=== PATIENT | female | born 1975 | race Caucasian/White ===

== ENCOUNTER → 2016-07-26 | Outpatient (REF) | payer OTHER ==
[2016-07-26 18:22] LABS: MEAN CORPUSCULAR HEMOGLOBIN 29.1 pg (27.0-33.0); MEAN CORPUSCULAR HGB CONC 32.4 g/dl (32.0-36.5); MEAN CORPUSCULAR VOLUME 89.7 fl (80.0-96.0); RED CELL DISTRIBUTION WIDTH 13.6 % (11.5-14.5); WHITE BLOOD COUNT 3.5 K/mm3 (4.0-10.0)
[2016-07-26 20:31] LABS: ALBUMIN 3.8 GM/DL (3.2-5.2); ALBUMIN/GLOBULIN RATIO 1.41 (1.00-1.93); ALKALINE PHOSPHATASE 50 U/L (45-117); ALT/SGPT 15 U/L (12-78); ANION GAP 7 MEQ/L (8-16); AST/SGOT 10 U/L (15-37); BILIRUBIN,TOTAL 0.3 MG/DL (0.2-1.0); BLOOD UREA NITROGEN 13 MG/DL (7-18); CALCIUM LEVEL 8.1 MG/DL (8.5-10.1); CARBON DIOXIDE LEVEL 27 MEQ/L (21-32); CHLORIDE LEVEL 108 MEQ/L (98-107); CHOLESTEROL LEVEL 184 MG/DL (<200); CREATININE FOR GFR 0.63 MG/DL (0.55-1.02); GLOMERULAR FILTRATION RATE > 60.0 (>58); GLUCOSE, FASTING 80 MG/DL (70-105); POTASSIUM SERUM 4.5 MEQ/L (3.5-5.1); SODIUM LEVEL 142 MEQ/L (136-145); TOTAL PROTEIN 6.5 GM/DL (6.4-8.2); TRIGLYCERIDES LEVEL 63 MG/DL (<150)
== END ==
LOC: M SFHCLERA 11:28
PROVIDERS: ATTEND Family Medicine
DX: Z13.1 Encounter for screening for diabetes mellitus (principal); Z13.220 Encounter for screening for lipoid disorders; E55.9 Vitamin D deficiency, unspecified

== ENCOUNTER → 2016-07-29 | Outpatient (REF) | payer OTHER | LOC: M SFHCLERA 09:37 | PROVIDERS: ATTEND Physician Assistant | DX: J02.9 Acute pharyngitis, unspecified (principal) ==

== ENCOUNTER 2016-10-20 08:00 | Outpatient (CLI) | payer OTHER ==
[~2016-10-20] VITALS: Ht 154.9 cm; Wt 65.3 kg
[~2016-10-20 08:00] MED LIST: IBUP-1114 PO; LIDOCAINE 2% INJ 100 MG/5 ML SDV (FOR ANES.) As Ordered ONE; NS 1,000 ML IV ONE; PROPOFOL 200 MG/20 ML VIAL As Ordered ONE; TOPA100T12 PO
--- NOTE | 2016-10-20 09:42 | ROOR ---
Patient Name: Inocencia Byrnes Procedure Date: 10/20/2016 9:16 AM Date of : 1975 Age: 41 Room: [facility] Gender: Female Note Status: Finalized Procedure: Colonoscopy Indications: Follow-up of ulcerative colitis Providers: Jarrod Patiño Jr, MD Referring MD: [facility], [place] Requesting Provider: Medicines: Propofol per Anesthesia Complications: No immediate complications. Procedure: Pre-Anesthesia Assessment: - Prior to the procedure, a History and Physical was performed, and patient medications and allergies were reviewed. The patient is competent. The risks and benefits of the procedure and the sedation options and risks were discussed with the patient. All questions were answered and informed consent was obtained. Patient identification and proposed procedure were verified by the physician and the nurse in the pre-procedure area and in the procedure room. Mental Status Examination: alert and oriented. Airway Examination: normal oropharyngeal airway and neck mobility. Respiratory Examination: clear to auscultation. CV Examination: normal. ASA Grade Assessment: II - A patient with mild systemic disease. After reviewing the risks and benefits, the patient was deemed in satisfactory condition to undergo the procedure. The anesthesia plan was to use moderate sedation / analgesia (conscious sedation). Immediately prior to administration of medications, the patient was re-assessed for adequacy to receive sedatives. The heart rate, respiratory rate, oxygen saturations, blood pressure, adequacy of pulmonary ventilation, and response to care were monitored throughout the procedure. The physical status of the patient was re-assessed after the procedure. The Colonoscope was introduced through the anus and advanced to the cecum, identified by appendiceal orifice and ileocecal valve. The colonoscopy was performed without difficulty. The patient tolerated the procedure well. The quality of the bowel preparation was adequate and good. Findings: The perianal and digital rectal examinations were normal. Pertinent negatives include normal sphincter tone, no palpable rectal lesions and no anal lesion or abnormality was detected. The rectum, recto-sigmoid colon, sigmoid colon, descending colon, transverse colon, ascending colon, cecum, appendiceal orifice, ileocecal valve and ileum appeared normal. Terminal ileal Biopsies were taken with a cold forceps for histology. Biopsies for histology were taken with a cold forceps from the cecum, ascending colon, transverse colon, descending colon and sigmoid colon for evaluation of microscopic colitis. Impression: - The rectum, recto-sigmoid colon, sigmoid colon, descending colon, transverse colon, ascending colon, cecum, appendiceal orifice, ileocecal valve and terminal ileum are normal. Biopsied. Recommendation: - Discharge patient to home (ambulatory). - Telephone my office for pathology results in 1 week. Jarrod Patiño MD Jarrod Patiño Jr, MD 10/20/2016 9:42:16 AM This report has been signed electronically. Number of Addenda: 0 Note Initiated On: 10/20/2016 9:16 AM Estimated Blood Loss: Estimated blood loss: none.
[2016-10-20 10:00] VITALS: BP 104/71
== END 2016-10-20 10:11 | disposition home or self-care (01) ==
LOC: M OPP 08:00
PROVIDERS: ATTEND Surgery
DX: Z12.11 Encounter for screening for malignant neoplasm of colon (principal); K51.90 Ulcerative colitis, unspecified, without complications; K21.9 Gastro-esophageal reflux disease without esophagitis; G43.909 Migraine, unspecified, not intractable, without status migrainosus; K44.9 Diaphragmatic hernia without obstruction or gangrene; Z88.2 Allergy status to sulfonamides; Z79.899 Other long term (current) drug therapy; Z83.71 Family history of colonic polyps; Z80.8 Family history of malignant neoplasm of other organs or systems

== ENCOUNTER → 2016-11-03 | Outpatient (REF) | payer OTHER ==
[~2016-11-03] MED LIST changes: -LIDOCAINE 2% INJ 100 MG/5 ML SDV (FOR ANES.) As Ordered ONE; -NS 1,000 ML IV ONE; -PROPOFOL 200 MG/20 ML VIAL As Ordered ONE
== END ==
LOC: M LAB REF 18:51
PROVIDERS: ATTEND Family Medicine
DX: R85.610 Atypical squamous cells of undetermined significance on cytologic smear of anus (ASC-US) (principal)

== ENCOUNTER → 2016-12-05 | Outpatient (CLI) | payer OTHER ==
--- NOTE | 2016-12-05 19:09 | REPMRS ---
Patient History The patient states she had a clinical breast exam in November 2016.Patient had first child at age 31. Family history of breast cancer in paternal aunt under age 50 and breast cancer in paternal cousin under age 50. Digital Mammo Screening Bilat: December 05, 2016 - Exam #: [id number] Bilateral CC and MLO view(s) were taken. Technologist: Indira Dinero, Technologist Prior study comparison: May 27, 2015, digital bilateral screening mammo, performed at [facility]. FINDINGS: The breast tissue is heterogeneously dense. This may lower the sensitivity of mammography. There is a moderate amount of heterogeneously dense fibroglandular tissue which is fairly symmetric. There is no interval development of dominant mass, architectural distortion, or clustered microcalcification typical of malignancy. There has been no change in the appearance of the mammogram from the prior studies. ASSESSMENT: BI-RADS/ACR category 1 mammogram. Negative. Recommendation Breast MRI of both breasts in 6 months. This patient's estimated Tyrer-Cuzick lifetime risk assessment for the breast cancer is 21.3%. Enhanced screening in the form of annual bilateral breast MRI scanning is warranted. Routine screening mammogram of both breasts in 1 year (for women over age 40). This mammogram was interpreted with the aid of an FDA-approved computer-aided dectection system. Electronically Signed By: Eliazar Lazo MD 12/05/16 [id number]
== END ==
LOC: M RAD 18:07
PROVIDERS: ATTEND Family Medicine
DX: Z01.419 Encounter for gynecological examination (general) (routine) without abnormal findings (principal)

== ENCOUNTER → 2017-01-10 | Outpatient (CLI) | payer OTHER ==
--- NOTE | 2017-01-10 17:55 | REP ---
Pelvic sonography: History: Frequent menstruation. Excessive menstruation. Findings: Transabdominal and transvaginal scanning are performed. Uterine dimensions are 10.8 x 4.0 x 6.5 cm. Endometrial echo 0.9 cm thick and centrally placed. No focal uterine mass is seen. A normal right ovary seen measuring 3.4 x 2.4 x 1.8 cm. Its Doppler flow is normal, resistive index 0.50. Left ovary measures 3.5 x 2.7 x 3.0 cm. There is a 2.1 cm follicle cyst in the left ovary. Resistive index by Doppler is normal at 0.58 on the left. Bladder dunham are smooth. Impression: No significant abnormality. Signed by Caesar Lazo MD 01/11/2017 02:17 P
== END ==
LOC: M RAD 16:37
PROVIDERS: ATTEND Obstetrics & Gynecology
DX: N92.0 Excessive and frequent menstruation with regular cycle (principal)

== ENCOUNTER → 2017-08-22 | Outpatient (REF) | payer OTHER | LOC: M LAB REF 18:17 | DX: D23.5 Other benign neoplasm of skin of trunk (principal) | CPT/HCPCS: 88305 ==

== ENCOUNTER → 2017-12-21 | Outpatient (REF) | payer OTHER ==
[2017-12-21 20:50] LABS: BASO % 0.4 % (0.0-1.0); EOS # 0.1 10^3/uL (0.0-0.50); EOS % 1.3 % (0.0-3.0); HEMOGLOBIN 9.7 g/dl (12.0-15.5); IMMATURE GRANULOCYTE % 0.4 % (0-3.0); LYMPH # 1.5 10^3/uL (1.5-4.5); LYMPH % 32.7 % (24.0-44.0); MEAN CORPUSCULAR HEMOGLOBIN 22.2 pg (27.0-33.0); MEAN CORPUSCULAR HGB CONC 28.5 g/dl (32.0-36.5); MEAN CORPUSCULAR VOLUME 77.8 fl (80.0-96.0); MONO # 0.5 10^3/uL (0.0-0.8); NEUTROPHILS # 2.5 10^3/uL (1.8-7.7); NEUTROPHILS % 55.2 % (36.0-66.0); PLATELET COUNT, AUTOMATED 439 10^3/uL (150-450); RED BLOOD COUNT 4.37 10^6/uL (4.00-5.40); RED CELL DISTRIBUTION WIDTH 17.3 % (11.5-14.5); WHITE BLOOD COUNT 4.6 10^3/uL (4.0-10.0)
[2017-12-21 21:18] LABS: FREE T4 0.97 NG/DL (0.76-1.46); THYROID STIMULATING HORMONE 0.893 uIU/ML (0.358-3.740)
== END ==
LOC: M SFHCLERA 15:18
DX: L65.9 Nonscarring hair loss, unspecified (principal)

== ENCOUNTER → 2018-01-23 | Outpatient (REF) | payer OTHER ==
[2018-01-23 12:05] LABS: FERRITIN 2 NG/ML (8-252); IRON (FE) 17 UG/DL (50-170); PERCENT SATURATION 4.5 % (13.2-45.0); TOTAL IRON BINDING CAPACITY 379 UG/DL (250-450)
== END ==
LOC: M SFHCLERA 09:18
DX: D64.9 Anemia, unspecified (principal)

== ENCOUNTER → 2018-03-05 | Outpatient (CLI) | payer OTHER ==
--- NOTE | 2018-03-05 16:06 | REPMRS ---
Patient History The patient states she has not had a clinical breast exam in over a year. Family history of breast cancer under age 50 in paternal aunt, breast cancer under age 50 in paternal cousin. Digital Mammo Screening Bilat: March 05, 2018 - Exam #: [id number] Bilateral CC and MLO view(s) were taken. Technologist: Allegra Jeong, Technologist Prior study comparison: December 05, 2016, bilateral digital mammo screening bilat performed at [facility]. May 27, 2015, digital bilateral screening mammo, performed at [facility]. FINDINGS: There are scattered fibroglandular densities. There is a moderate amount of residual fibroglandular tissue which is fairly symmetric. There is no interval development of dominant mass, architectural distortion, or clustered microcalcification typical of malignancy. There has been no change in the appearance of the mammogram from the prior studies. 3-D tomosynthesis shows no additional findings. Assessment: BI-RADS/ACR category 1 mammogram. Negative. Recommendation Breast MRI of both breasts in 6 months. Routine screening mammogram of both breasts in 1 year (for women over age 40). This patient's Lifetime Breast Cancer RIsk is estimated at 20.8 %. Annual screening Breast MRI scanniing is recommended for patient's whose lifetime risk assessment is over 20%. This mammogram was interpreted with the aid of an FDA-approved computer-aided dectection system. Electronically Signed By: Eliazar Lazo MD 03/05/18 [id number]
== END ==
LOC: M RAD 10:54
PROVIDERS: ATTEND Family Medicine
DX: Z12.31 Encounter for screening mammogram for malignant neoplasm of breast (principal)

== ENCOUNTER → 2018-03-08 | Outpatient (CLI) | payer OTHER ==
--- NOTE | 2018-03-09 02:19 | REP ---
Clinical: Cough . Comparison: 11/12/2008 . Technique: PA and lateral. Findings: The mediastinum and cardiac silhouette are normal. The lung chavez are clear and without acute consolidation, effusion, or pneumothorax. The skeletal structures are intact and normal. Impression: 1. No acute cardiopulmonary process. Electronically Signed by Rex Murphy MD 03/09/2018 02:10 A
== END ==
LOC: M LRY 09:36
PROVIDERS: ATTEND Nurse Practitioner Family
DX: R05 Cough (principal)

== ENCOUNTER → 2019-03-07 | Outpatient (CLI) | payer OTHER ==
--- NOTE | 2019-03-07 12:32 | REPMRS ---
Patient History The patient states she had a clinical breast exam in October 2018. Family history of breast cancer under age 50 in paternal aunt, breast cancer under age 50 in paternal cousin. Digital Mammo Screening Bilat: March 07, 2019 - Exam #: [id number] Bilateral CC and MLO view(s) were taken. Technologist: Franca Dorado Technologist Prior study comparison: March 05, 2018, bilateral digital mammo screening bilat performed at [facility]. December 05, 2016, bilateral digital mammo screening bilat performed at [facility]. May 27, 2015, digital bilateral screening mammo, performed at [facility]. FINDINGS: There are scattered fibroglandular densities. There is a nodular opacity in the left medial breast which is felt to be unchanged from the 2016 and 2015 prior studies.There has been no change in the appearance of the mammogram from the prior studies. There is a mild amount of scattered fibroglandular density which is fairly symmetric. There is no interval development of dominant mass, architectural distortion, or grouped microcalcification suggestive of malignancy. 3-D tomosynthesis shows no additional findings. Assessment: BI-RADS/ACR category 2 mammogram. Benign Findings. Recommendation Breast MRI of both breasts in 6 months. Routine screening mammogram of both breasts in 1 year (for women over age 40). This patient's Lifetime Breast Cancer Risk is estimated at 20.5 %. Annual screening Breast MRI scanniing is recommended for patient's whose lifetime risk assessment is over 20%. This mammogram was interpreted with the aid of an FDA-approved computer-aided dectection system. Electronically Signed By: Eliazar Lazo MD 03/07/19 [id number]
== END ==
LOC: M RAD 10:25
PROVIDERS: ATTEND Family Medicine
DX: Z12.31 Encounter for screening mammogram for malignant neoplasm of breast (principal); Z80.3 Family history of malignant neoplasm of breast

== ENCOUNTER → 2019-10-03 | Outpatient (CLI) | payer OTHER ==
[2019-10-03 12:28] LABS: BASO % 0.5 % (0.0-1.0); EOS % 0.3 % (0.0-3.0); HEMATOCRIT 37.3 % (36.0-47.0); HEMOGLOBIN 10.9 g/dl (12.0-15.5); LYMPH # 1.3 10^3/uL (1.5-5.0); LYMPH % 33.3 % (24.0-44.0); MEAN CORPUSCULAR HEMOGLOBIN 23.7 pg (27.0-33.0); MEAN CORPUSCULAR HGB CONC 29.2 g/dl (32.0-36.5); MEAN CORPUSCULAR VOLUME 81.1 fl (80.0-96.0); MONO # 0.3 10^3/uL (0.0-0.8); MONO % 8.7 % (0.0-5.0); NEUTROPHILS # 2.1 10^3/uL (1.5-8.5); NEUTROPHILS % 56.7 % (36.0-66.0); PLATELET COUNT, AUTOMATED 324 10^3/uL (150-450); WHITE BLOOD COUNT 3.8 10^3/uL (4.0-10.0)
[2019-10-03 12:54] LABS: ALT/SGPT 18 U/L (12-78); BILIRUBIN,TOTAL 0.4 MG/DL (0.2-1.0); BLOOD UREA NITROGEN 13 MG/DL (7-18); CALCIUM LEVEL 8.2 MG/DL (8.5-10.1); CARBON DIOXIDE LEVEL 20 MEQ/L (21-32); CHLORIDE LEVEL 113 MEQ/L (98-107); CHOLESTEROL LEVEL 188 MG/DL (<200); CREATININE FOR GFR 0.83 MG/DL (0.55-1.30); FERRITIN 48 NG/ML (8-252); GLOMERULAR FILTRATION RATE > 60.0 (>58); GLUCOSE, FASTING 78 MG/DL (70-100); HDL CHOLESTEROL 39 MG/DL (>40); IRON (FE) 44 UG/DL (50-170); LDL CHOLESTEROL 125 MG/DL (<100); NON-HDL-C 149 MG/DL; PERCENT SATURATION 11.5 % (13.2-45.0); POTASSIUM SERUM 4.1 MEQ/L (3.5-5.1); SODIUM LEVEL 142 MEQ/L (136-145); TOTAL IRON BINDING CAPACITY 381 UG/DL (250-450); TRIGLYCERIDES LEVEL 121 MG/DL (<150)
[2019-10-03 12:55] LABS: FOLATE 16.8 NG/ML; TOTAL 25(OH) VITAMIN D 23.2 NG/ML (30.0-100.0); VITAMIN B12 LEVEL 358 PG/ML
== END ==
LOC: M LAB 10:10
PROVIDERS: ATTEND Family Medicine
DX: Z00.00 Encounter for general adult medical examination without abnormal findings (principal); D50.9 Iron deficiency anemia, unspecified

== ENCOUNTER → 2020-04-29 | Outpatient (CLI) | payer OTHER ==
--- NOTE | 2020-04-29 09:17 | REPMRS ---
Patient History The patient states she has not had a clinical breast exam in over a year. Patient had first child at age 31. Family history of breast cancer under age 50 in paternal aunt, breast cancer under age 50 in paternal cousin. Digital Woman Screen Mammo: April 29, 2020 - Exam #: [id number] Bilateral CC and MLO view(s) were taken. Technologist: Allegra Jeong, Technologist Prior study comparison: March 07, 2019, bilateral digital mammo screening bilat, performed at [facility]. March 05, 2018, bilateral digital mammo screening bilat, performed at [facility]. December 05, 2016, bilateral digital mammo screening bilat, performed at [facility]. FINDINGS: There are scattered fibroglandular densities. The Volpara volumetric breast density category is:B. There has been no change in the appearance of the mammogram from the prior studies. There is a mild amount of scattered fibroglandular density which is fairly symmetric. There is no interval development of dominant mass, architectural distortion, or grouped microcalcification suggestive of malignancy. 3-D tomosynthesis shows no additional findings. Assessment: BI-RADS/ACR category 1 mammogram. Negative Mammogram. Recommendation Breast MRI of both breasts in 6 months. Routine screening mammogram of both breasts in 1 year (for women over age 40). This patient's [facility] Lifetime Breast Cancer Risk is estimated at 20.3 %. Annual screening Breast MRI scanniing is recommended for patient's whose lifetime risk assessment is over 20%. This mammogram was interpreted with the aid of an FDA-approved computer-aided dectection system. Electronically Signed By: Eliazar Lazo MD 04/29/20 0916
== END ==
LOC: M WHC 06:30
PROVIDERS: ATTEND Physician Assistant
DX: Z12.31 Encounter for screening mammogram for malignant neoplasm of breast (principal)

== ENCOUNTER → 2020-05-13 | Outpatient (CLI) | payer OTHER ==
[2020-05-13 14:25] LABS: BASO % 0.4 % (0.0-1.0); EOS % 0.4 % (0.0-3.0); HEMATOCRIT 38.4 % (36.0-47.0); HEMOGLOBIN 11.7 g/dl (12.0-15.5); LYMPH # 1.9 10^3/uL (1.5-5.0); LYMPH % 36.1 % (24.0-44.0); MEAN CORPUSCULAR HEMOGLOBIN 25.7 pg (27.0-33.0); MEAN CORPUSCULAR HGB CONC 30.5 g/dl (32.0-36.5); MEAN CORPUSCULAR VOLUME 84.4 fl (80.0-96.0); MONO # 0.5 10^3/uL (0.0-0.8); MONO % 9.6 % (2.0-8.0); NEUTROPHILS # 2.8 10^3/uL (1.5-8.5); NEUTROPHILS % 53.1 % (36.0-66.0); PLATELET COUNT, AUTOMATED 286 10^3/uL (150-450); RED BLOOD COUNT 4.55 10^6/uL (4.00-5.40); WHITE BLOOD COUNT 5.3 10^3/uL (4.0-10.0)
[2020-05-13 14:41] LABS: ALT/SGPT 22 U/L (12-78); BILIRUBIN,TOTAL 0.5 MG/DL (0.2-1.0); BLOOD UREA NITROGEN 12 MG/DL (7-18); CALCIUM LEVEL 9.1 MG/DL (8.5-10.1); CARBON DIOXIDE LEVEL 26 MEQ/L (21-32); CHLORIDE LEVEL 107 MEQ/L (98-107); CREATININE FOR GFR 0.74 MG/DL (0.55-1.30); GLOMERULAR FILTRATION RATE > 60.0 (>58); GLUCOSE, FASTING 81 MG/DL (70-100); IRON (FE) 39 UG/DL (50-170); PERCENT SATURATION 9.3 % (13.2-45.0); POTASSIUM SERUM 4.3 MEQ/L (3.5-5.1); SODIUM LEVEL 138 MEQ/L (136-145); TOTAL IRON BINDING CAPACITY 420 UG/DL (250-450)
== END ==
LOC: M LAB 13:15
PROVIDERS: ATTEND Family Medicine
DX: Z00.00 Encounter for general adult medical examination without abnormal findings (principal)

== ENCOUNTER → 2020-05-14 | Outpatient (REF) | payer OTHER | LOC: M SFHCLERA 15:57 | PROVIDERS: ATTEND Family Medicine | DX: Z01.419 Encounter for gynecological examination (general) (routine) without abnormal findings (principal) ==

== ENCOUNTER 2021-02-15 07:50 | Outpatient (RCR) | END 2021-02-15 15:00 | disposition home or self-care (01) | LOC: M EMP 07:50 | PROVIDERS: ATTEND Pediatrics | DX: Z11.52 Encounter for screening for COVID-19 (principal) ==

== ENCOUNTER → 2021-05-05 | Outpatient (CLI) | payer OTHER ==
[2021-05-05 11:15] LABS: BASO % 0.6 % (0.0-1.0); EOS % 0.6 % (0.0-3.0); HEMATOCRIT 37.6 % (36.0-47.0); HEMOGLOBIN 11.2 g/dl (12.0-15.5); LYMPH # 1.6 10^3/uL (1.5-5.0); LYMPH % 31.5 % (24.0-44.0); MEAN CORPUSCULAR HEMOGLOBIN 24.6 pg (27.0-33.0); MEAN CORPUSCULAR HGB CONC 29.8 g/dl (32.0-36.5); MEAN CORPUSCULAR VOLUME 82.6 fl (80.0-96.0); MONO # 0.4 10^3/uL (0.0-0.8); MONO % 8.1 % (2.0-8.0); NEUTROPHILS # 3.1 10^3/uL (1.5-8.5); PLATELET COUNT, AUTOMATED 360 10^3/uL (150-450); RED BLOOD COUNT 4.55 10^6/uL (4.00-5.40); WHITE BLOOD COUNT 5.2 10^3/uL (4.0-10.0)
[2021-05-05 11:45] LABS: ALBUMIN 3.7 GM/DL (3.2-5.2); ALT/SGPT 25 U/L (12-78); BILIRUBIN,TOTAL 0.3 MG/DL (0.2-1.0); BLOOD UREA NITROGEN 10 MG/DL (7-18); CALCIUM LEVEL 8.7 MG/DL (8.5-10.1); CARBON DIOXIDE LEVEL 28 MEQ/L (21-32); CHLORIDE LEVEL 108 MEQ/L (98-107); CHOLESTEROL LEVEL 204 MG/DL (<200); CREATININE FOR GFR 0.67 MG/DL (0.55-1.30); GLOMERULAR FILTRATION RATE > 60.0 (>58); GLUCOSE, FASTING 82 MG/DL (70-100); HDL CHOLESTEROL 51 MG/DL (>40); LDL CHOLESTEROL 121 MG/DL (<100); NON-HDL-C 153 MG/DL; POTASSIUM SERUM 4.1 MEQ/L (3.5-5.1); SODIUM LEVEL 141 MEQ/L (136-145); TOTAL PROTEIN 6.8 GM/DL (6.4-8.2); TRIGLYCERIDES LEVEL 159 MG/DL (<150)
== END ==
LOC: M LAB 10:27
PROVIDERS: ATTEND Student in an Organized Health Care Education/Training Program
DX: Z00.00 Encounter for general adult medical examination without abnormal findings (principal)

== ENCOUNTER → 2021-05-07 | Outpatient (CLI) | payer OTHER | LOC: M WHC 10:54 | PROVIDERS: ATTEND Student in an Organized Health Care Education/Training Program | DX: Z12.31 Encounter for screening mammogram for malignant neoplasm of breast (principal) ==

== ENCOUNTER → 2021-05-19 | Outpatient (CLI) | payer OTHER | LOC: M WHC 09:59 | PROVIDERS: ATTEND Student in an Organized Health Care Education/Training Program | DX: Z12.31 Encounter for screening mammogram for malignant neoplasm of breast (principal) | CPT/HCPCS: 77065; G0279 ==

== ENCOUNTER 2021-06-01 22:36 | Emergency (ER) | payer OTHER ==
[~2021-06-01] VITALS: Ht 154.9 cm; Wt 72.3 kg
[2021-06-01] MEDS ORDERED: PANTOPRAZOLE 40MG VIAL (C9113 PER 1) IV ONE (23:10)
[2021-06-01 23:37] LABS: BASO % 0.3 % (0.0-1.0); EOS % 0.3 % (0.0-3.0); HEMATOCRIT 34.2 % (36.0-47.0); HEMOGLOBIN 10.7 g/dl (12.0-15.5); LYMPH % 13.4 % (24.0-44.0); MEAN CORPUSCULAR HEMOGLOBIN 24.8 pg (27.0-33.0); MEAN CORPUSCULAR HGB CONC 31.3 g/dl (32.0-36.5); MEAN CORPUSCULAR VOLUME 79.2 fl (80.0-96.0); MONO # 0.5 10^3/uL (0.0-0.8); MONO % 7.3 % (2.0-8.0); NEUTROPHILS # 5.6 10^3/uL (1.5-8.5); NEUTROPHILS % 78.3 % (36.0-66.0); PLATELET COUNT, AUTOMATED 327 10^3/uL (150-450); RED BLOOD COUNT 4.32 10^6/uL (4.00-5.40); WHITE BLOOD COUNT 7.1 10^3/uL (4.0-10.0)
[2021-06-02 00:04] LABS: ALBUMIN 3.7 GM/DL (3.2-5.2); ALT/SGPT 87 U/L (12-78); BILIRUBIN,DIRECT 0.1 MG/DL (0.0-0.2); BILIRUBIN,TOTAL 0.2 MG/DL (0.2-1.0); BLOOD UREA NITROGEN 13 MG/DL (7-18); CALCIUM LEVEL 8.9 MG/DL (8.5-10.1); CARBON DIOXIDE LEVEL 23 MEQ/L (21-32); CHLORIDE LEVEL 112 MEQ/L (98-107); CREATININE FOR GFR 0.78 MG/DL (0.55-1.30); GLOMERULAR FILTRATION RATE > 60.0 (>58); GLUCOSE, FASTING 101 MG/DL (70-100); LIPASE 150 U/L (73-393); POTASSIUM SERUM 4.2 MEQ/L (3.5-5.1); SODIUM LEVEL 140 MEQ/L (136-145); TOTAL PROTEIN 6.6 GM/DL (6.4-8.2)
[2021-06-02] MEDS ORDERED: KETOROLAC 30 MG/ML 1ML VIAL IV ONE ×2 (02:00→03:05)
[2021-06-02] MEDS ORDERED: KETOROLAC 30 MG/ML 1ML VIAL As Ordered ONE (02:06)
[2021-06-02 03:00] VITALS: BP 122/80
[2021-06-02] MEDS ORDERED: NORCO 5/325MG TABLET (BULK FOR ED) PO ONE (04:25)
[2021-06-02] MEDS ORDERED: HYDR-3713 PO ×2 (04:31→04:41)
== END 2021-06-02 04:43 | disposition home or self-care (01) ==
LOC: M ED 22:36
DX: K80.62 Calculus of gallbladder and bile duct with acute cholecystitis without obstruction (principal); Z88.1 Allergy status to other antibiotic agents; Z88.2 Allergy status to sulfonamides
CPT/HCPCS: 76705; 80048; 80076; 83690; 85025; 93005; 93041; 96374; 96375; 96376; 99285; C9113; J1885

== ENCOUNTER 2021-08-02 12:03 | Day surgery (SDC) | payer OTHER ==
[~2021-08-02] VITALS: Ht 154.9 cm; Wt 70.3 kg
[~2021-08-02 12:03] MED LIST changes: +AMPICILLIN SOD/SULBACTAM SOD 3 GM in D5W MINI-BAG PLUS 100 ML IV ONE; +CelecoXIB 400 MG CAP PO ONE; +HYDR-3713 PO; +LR 1,000 ML IV ONE
[2021-08-02] MEDS ORDERED: LR 1,000 ML IV SCH ×2 (12:40→17:25)
[2021-08-02] MEDS ORDERED: INSULIN LISPRO (NovoLOG) PER UNIT SC PRN ×2 (12:40→17:25)
[2021-08-02] MEDS ORDERED: BUPIVACAINE HCL 0.25% 30ML VIAL As Ordered ONE (14:55)
[2021-08-02] MEDS ORDERED: LIDOCAINE 1% SDV 30ML VIAL As Ordered ONE (14:55)
[2021-08-02] MEDS ORDERED: fentaNYL 100 MCG/2 ML INJECTION As Ordered ONE ×2 (14:56→16:40)
[2021-08-02] MEDS ORDERED: ONDANSETRON 4MG/2ML VIAL As Ordered ONE ×2 (14:56→16:50)
[2021-08-02] MEDS ORDERED: dexameTHASONE 4 MG/ML 1ML VIAL (J1100 PER 1MG) As Ordered ONE (14:56)
[2021-08-02] MEDS ORDERED: MIDAZOLAM INJ 2MG/2ML VIAL (J2250 PER 1MG) As Ordered ONE (14:56)
[2021-08-02] MEDS ORDERED: METOCLOPRAMIDE INJ 10MG/2ML VIAL (J2765 PER 1) As Ordered ONE (14:56)
[2021-08-02] MEDS ORDERED: KETOROLAC 60MG 2ML VIAL As Ordered ONE (14:56)
[2021-08-02] MEDS ORDERED: propofoL 200 MG/20 ML VIAL As Ordered ONE (14:56)
[2021-08-02] MEDS ORDERED: LIDOCAINE 2% 100MG/5ML SDV (FOR ANES.) As Ordered ONE (14:56)
[2021-08-02] MEDS ORDERED: ROCURONIUM BROMIDE 50 MG/5 ML VIAL As Ordered ONE ×2 (14:56→16:27)
[2021-08-02] MEDS ORDERED: INDOCYANINE GREEN 25MG VIAL (IC-GREEN) As Ordered ONE (15:20)
[2021-08-02] MEDS ORDERED: ACETAMINOPHEN 1000MG 100ML IV BTL (OFIRMEV) (J0131 PER 10MG) As Ordered ONE (16:48)
[2021-08-02] MEDS ORDERED: SUGAMMADEX SODIUM 500 MG/5 ML VIAL (BRIDION) As Ordered ONE (16:55)
[2021-08-02] MEDS ORDERED: oxyCODONE 5MG TAB PO PRN (17:25)
[2021-08-02] MEDS ORDERED: fentaNYL 100 MCG/2 ML INJECTION IV PRN (17:25)
[2021-08-02] MEDS ORDERED: MORPHINE 2 MG/ML 1ML VIAL IV PRN (17:25)
[2021-08-02] MEDS ORDERED: ONDANSETRON 4MG/2ML VIAL IV PRN (17:25)
[2021-08-02 18:26] VITALS: BP 119/60
== END 2021-08-02 18:34 | disposition home or self-care (01) ==
LOC: M SDC 12:03
PROVIDERS: ATTEND Surgery
DX: K80.10 Calculus of gallbladder with chronic cholecystitis without obstruction (principal); K80.50 Calculus of bile duct without cholangitis or cholecystitis without obstruction; K51.90 Ulcerative colitis, unspecified, without complications; Z88.2 Allergy status to sulfonamides; Z79.899 Other long term (current) drug therapy
CPT/HCPCS: 47563; 64488; 88304; J0131; J0295; J1100; J1885; J2250; J2405; J2765; J3010; Q9968; S2900

== ENCOUNTER → 2021-08-09 | Outpatient (REF) | payer OTHER ==
[~2021-08-09] MED LIST changes: -AMPICILLIN SOD/SULBACTAM SOD 3 GM in D5W MINI-BAG PLUS 100 ML IV ONE; -CelecoXIB 400 MG CAP PO ONE; -LR 1,000 ML IV ONE
== END ==
LOC: M LAB REF 15:39
PROVIDERS: ATTEND Physician Assistant
DX: B37.3 Candidiasis of vulva and vagina (principal)

== ENCOUNTER → 2023-07-13 | Outpatient (CLI) | payer OTHER ==
[2023-07-13 12:23] LABS: HEMATOCRIT 33.6 % (36.0-47.0); HEMOGLOBIN 9.6 g/dl (12.0-15.5); MEAN CORPUSCULAR HEMOGLOBIN 21.4 pg (27.0-33.0); MEAN CORPUSCULAR HGB CONC 28.6 g/dl (32.0-36.5); PLATELET COUNT, AUTOMATED 369 10^3/uL (150-450); RED BLOOD COUNT 4.48 10^6/uL (4.00-5.40); WHITE BLOOD COUNT 3.6 10^3/uL (4.0-10.0)
[2023-07-13 12:45] LABS: IRON (FE) 15 UG/DL (50-170); PERCENT SATURATION 3.8 % (13.2-45.0); TOTAL IRON BINDING CAPACITY 398 UG/DL (250-425)
[2023-07-13 12:46] LABS: ALBUMIN 3.7 G/DL (3.2-5.2); ALKALINE PHOSPHATASE 53 U/L (46-116); ALT/SGPT 17 U/L (7.0-40); AST/SGOT 17 U/L (<34); BILIRUBIN,TOTAL 0.3 MG/DL (0.3-1.2); BLOOD UREA NITROGEN 8 MG/DL (9-23); CALCIUM LEVEL 8.5 MG/DL (8.5-10.1); CARBON DIOXIDE LEVEL 26 MMOL/L (20-31); CHLORIDE LEVEL 107 MMOL/L (98-107); CHOLESTEROL LEVEL 166 MG/DL (<200); CHOLESTEROL RISK RATIO 3.58 (<5); CREATININE FOR GFR 0.73 MG/DL (0.55-1.30); GLOMERULAR FILTRATION RATE > 60.0 (>58); GLUCOSE, FASTING 80 MG/DL (60-100); HDL CHOLESTEROL 46.3 MG/DL (>40); LDL CHOLESTEROL 90.1 MG/DL (<100); NON-HDL-C 119.7 MG/DL; POTASSIUM SERUM 4.1 MMOL/L (3.5-5.1); SODIUM LEVEL 138 MMOL/L (136-145); TOTAL PROTEIN 6.2 G/DL (5.7-8.2); TRIGLYCERIDES LEVEL 148 MG/DL (<150)
[2023-07-13 12:48] LABS: THYROID STIMULATING HORMONE 0.978 uIU/ML (0.55-4.78); TOTAL 25(OH) VITAMIN D 17.1 NG/ML (20.0-100.0)
[2023-07-13 13:02] LABS: ANISOCYTOSIS 1+; ATYPICAL LYMPH 6 % (0-5); EOSINOPHILS 2 % (0-3); LYMPHOCYTES 41 % (16-44); MONOCYTES 9 % (0-5); NEUTROPHILS 42 % (28-66); PLATELET ESTIMATE NORMAL (NORMAL)
[2023-07-13 13:03] LABS: HYPOCHROMASIA 1+; OVALOCYTES 1+; POIKILOCYTOSIS 1+; POLYCHROMASIA 1+
== END ==
LOC: M LAB 11:49
PROVIDERS: ATTEND Physician Assistant
DX: Z00.00 Encounter for general adult medical examination without abnormal findings (principal)

== ENCOUNTER → 2023-10-24 | Outpatient (CLI) | payer OTHER ==
[2023-10-24 13:40] LABS: BASO % 0.5 % (0.0-1.0); EOS % 0.8 % (0.0-3.0); HEMATOCRIT 41.3 % (36.0-47.0); LYMPH # 1.3 10^3/uL (1.5-5.0); MEAN CORPUSCULAR HEMOGLOBIN 27.1 pg (27.0-33.0); MEAN CORPUSCULAR HGB CONC 31.5 g/dl (32.0-36.5); MEAN CORPUSCULAR VOLUME 86.2 fl (80.0-96.0); MONO # 0.4 10^3/uL (0.0-0.8); MONO % 9.8 % (2.0-8.0); NEUTROPHILS # 2.1 10^3/uL (1.5-8.5); NEUTROPHILS % 54.4 % (36.0-66.0); PLATELET COUNT, AUTOMATED 282 10^3/uL (150-450); RED BLOOD COUNT 4.79 10^6/uL (4.00-5.40); WHITE BLOOD COUNT 3.9 10^3/uL (4.0-10.0)
[2023-10-24 14:05] LABS: FERRITIN 6.4 NG/ML (7.3-270.7)
[2023-10-24 14:06] LABS: THYROID STIMULATING HORMONE 0.811 uIU/ML (0.55-4.78)
[2023-10-24 14:07] LABS: FOLATE 15.5 NG/ML (>5.4)
[2023-10-24 14:09] LABS: FREE T4 1.12 NG/DL (0.89-1.76)
== END ==
LOC: M PLALAB 10:53
PROVIDERS: ATTEND Internal Medicine Hematology
DX: D50.0 Iron deficiency anemia secondary to blood loss (chronic) (principal)

== ENCOUNTER 2023-11-06 11:11 | Outpatient (CLI) | payer OTHER ==
[~2023-11-06] VITALS: Ht 154.9 cm; Wt 72.0 kg
[~2023-11-06 11:11] MED LIST changes: +ALBUTEROL SULFATE 2.5MG/0.5ML INH NEB SOLN INH PRN; +EPINEPHrine INJ 1 MG/ML 1ML AMP IM PRN; +NS 1,000 ML IV SCH; +diphenhydrAMINE 50MG/ML VIAL IV PRN; +methylPREDNISolone 125MG 2ML VIAL IV PRN
[2023-11-06 11:30] VITALS: BP 113/58; O2SAT 100
[2023-11-06] MEDS: IRON SUCROSE 300 MG in NS 250 ML IV ONE (11:56)
[2023-11-06 13:55] VITALS: BP 110/74; O2SAT 96
== END 2023-11-06 14:00 ==
LOC: M INFU 11:11
PROVIDERS: ATTEND Internal Medicine Hematology
DX: D50.9 Iron deficiency anemia, unspecified (principal); Z88.2 Allergy status to sulfonamides
CPT/HCPCS: 96365; 96366; J1756

== ENCOUNTER → 2023-11-09 | Outpatient (REF) | payer OTHER ==
[~2023-11-09] MED LIST changes: -ALBUTEROL SULFATE 2.5MG/0.5ML INH NEB SOLN INH PRN; -EPINEPHrine INJ 1 MG/ML 1ML AMP IM PRN; -NS 1,000 ML IV SCH; -diphenhydrAMINE 50MG/ML VIAL IV PRN; -methylPREDNISolone 125MG 2ML VIAL IV PRN
== END ==
LOC: M SFHCWAGY 12:36
PROVIDERS: ATTEND Nurse Practitioner Family
DX: Z12.4 Encounter for screening for malignant neoplasm of cervix (principal)

== ENCOUNTER → 2023-11-09 | Outpatient (CLI) | payer OTHER | LOC: M WHC 07:35 | PROVIDERS: ATTEND Nurse Practitioner Family | DX: Z12.31 Encounter for screening mammogram for malignant neoplasm of breast (principal) ==

== ENCOUNTER 2023-11-13 12:30 | Outpatient (CLI) | payer OTHER ==
[~2023-11-13] VITALS: Ht 157.5 cm; Wt 72.8 kg
[~2023-11-13 12:30] MED LIST changes: +ALBUTEROL SULFATE 2.5MG/0.5ML INH NEB SOLN INH PRN; +EPINEPHrine INJ 1 MG/ML 1ML AMP IM PRN; +NS 1,000 ML IV SCH; +diphenhydrAMINE 50MG/ML VIAL IV PRN; +methylPREDNISolone 125MG 2ML VIAL IV PRN
[2023-11-13 12:35] VITALS: BP 115/70; O2SAT 97
[2023-11-13] MEDS: IRON SUCROSE 300 MG in NS 250 ML OVER 90 MIN. IV ONE (12:45)
[2023-11-13 14:45] VITALS: BP 103/58; O2SAT 100
== END 2023-11-13 13:45 ==
LOC: M INFU 12:30
PROVIDERS: ATTEND Internal Medicine Hematology
DX: D50.9 Iron deficiency anemia, unspecified (principal); Z88.2 Allergy status to sulfonamides
CPT/HCPCS: 96365; 96366; J1756

== ENCOUNTER 2023-11-21 12:30 | Outpatient (CLI) | payer OTHER ==
[~2023-11-21] VITALS: Ht 154.9 cm; Wt 73.2 kg
[2023-11-21 12:35] VITALS: BP 106/58; O2SAT 98
[2023-11-21] MEDS: IRON SUCROSE 300 MG in NS 250 ML IV ONE (13:11)
== END 2023-11-21 14:00 ==
LOC: M INFU 12:30
PROVIDERS: ATTEND Internal Medicine Hematology
DX: D50.9 Iron deficiency anemia, unspecified (principal); Z88.2 Allergy status to sulfonamides
CPT/HCPCS: 96365; 96366; J1756

== ENCOUNTER 2024-01-17 10:17 | Day surgery (SDC) | payer OTHER ==
[~2024-01-17] VITALS: Ht 154.9 cm; Wt 73.2 kg
[~2024-01-17 10:17] MED LIST changes: -ALBUTEROL SULFATE 2.5MG/0.5ML INH NEB SOLN INH PRN; -EPINEPHrine INJ 1 MG/ML 1ML AMP IM PRN; +IBUP200C28 PO; +IRON65TA2 PO; +LIDOCAINE 2% 100MG/5ML SDV (FOR ANES.) As Ordered ONE; -NS 1,000 ML IV SCH; +NS 250 ML IV ONE; +VITA100093 PO; -diphenhydrAMINE 50MG/ML VIAL IV PRN; -methylPREDNISolone 125MG 2ML VIAL IV PRN; +propofoL 200 MG/20 ML VIAL As Ordered ONE
[2024-01-17] MEDS ORDERED: fentaNYL 100 MCG/2 ML INJECTION As Ordered ONE (11:03)
[2024-01-17] MEDS ORDERED: PHENYLephrine 500MCG 5ML (100MCG/ML) SYRINGE As Ordered ONE (11:18)
[2024-01-17] MEDS ORDERED: ONDANSETRON 4MG 2ML VIAL As Ordered ONE (11:26)
[2024-01-17 11:55] VITALS: BP 101/63; TEMP 97.1; O2SAT 96
== END 2024-01-17 12:05 | disposition home or self-care (01) ==
LOC: M OPP 10:17
PROVIDERS: ATTEND Surgery
DX: D50.9 Iron deficiency anemia, unspecified (principal); K64.9 Unspecified hemorrhoids; K31.89 Other diseases of stomach and duodenum; K30 Functional dyspepsia; K21.9 Gastro-esophageal reflux disease without esophagitis; Z87.19 Personal history of other diseases of the digestive system; Z88.2 Allergy status to sulfonamides; Z91.048 Other nonmedicinal substance allergy status
CPT/HCPCS: 43239; 45380; 88305; J2371; J2405; J3010

== ENCOUNTER → 2024-02-26 | Outpatient (CLI) | payer OTHER ==
[~2024-02-26] MED LIST changes: -LIDOCAINE 2% 100MG/5ML SDV (FOR ANES.) As Ordered ONE; -NS 250 ML IV ONE; -propofoL 200 MG/20 ML VIAL As Ordered ONE
[2024-02-26 17:34] LABS: BASO % 0.4 % (0.0-1.0); EOS % 0.4 % (0.0-3.0); HEMATOCRIT 42.9 % (36.0-47.0); HEMOGLOBIN 14.1 g/dl (12.0-15.5); LYMPH # 1.7 10^3/uL (1.5-5.0); LYMPH % 37.5 % (24.0-44.0); MEAN CORPUSCULAR HEMOGLOBIN 30.2 pg (27.0-33.0); MEAN CORPUSCULAR HGB CONC 32.9 g/dl (32.0-36.5); MEAN CORPUSCULAR VOLUME 91.9 fl (80.0-96.0); MONO # 0.4 10^3/uL (0.0-0.8); MONO % 8.8 % (2.0-8.0); NEUTROPHILS # 2.4 10^3/uL (1.5-8.5); NEUTROPHILS % 52.5 % (36.0-66.0); PLATELET COUNT, AUTOMATED 288 10^3/uL (150-450); RED BLOOD COUNT 4.67 10^6/uL (4.00-5.40); WHITE BLOOD COUNT 4.6 10^3/uL (4.0-10.0)
== END ==
LOC: M LAB 15:59
PROVIDERS: ATTEND Internal Medicine Hematology
DX: D50.0 Iron deficiency anemia secondary to blood loss (chronic) (principal)

== ENCOUNTER → 2024-05-27 | Outpatient (CLI) | payer OTHER ==
[2024-05-27 09:39] LABS: BASO % 0.3 % (0.0-1.0); EOS % 0.6 % (0.0-3.0); HEMATOCRIT 40.6 % (36.0-47.0); HEMOGLOBIN 13.4 g/dl (12.0-15.5); LYMPH # 1.3 10^3/uL (1.5-5.0); LYMPH % 36.2 % (24.0-44.0); MEAN CORPUSCULAR HEMOGLOBIN 29.8 pg (27.0-33.0); MEAN CORPUSCULAR VOLUME 90.2 fl (80.0-96.0); MONO # 0.3 10^3/uL (0.0-0.8); MONO % 8.1 % (2.0-8.0); NEUTROPHILS # 1.9 10^3/uL (1.5-8.5); NEUTROPHILS % 54.2 % (36.0-66.0); PLATELET COUNT, AUTOMATED 242 10^3/uL (150-450); WHITE BLOOD COUNT 3.6 10^3/uL (4.0-10.0)
== END ==
LOC: M LAB 09:07
PROVIDERS: ATTEND Internal Medicine Hematology
DX: D50.0 Iron deficiency anemia secondary to blood loss (chronic) (principal)

== ENCOUNTER → 2024-09-26 | Outpatient (CLI) | payer OTHER ==
[2024-09-26 14:19] LABS: BASO # 0.0 10^3/uL (0.0-0.2); BASO % 0.3 % (0.0-1.0); EOS # 0.0 10^3/uL (0.0-0.5); EOS % 0.3 % (0.0-3.0); LYMPH # 1.5 10^3/uL (1.5-5.0); LYMPH % 37.4 % (24.0-44.0); MONO # 0.3 10^3/uL (0.0-0.8); MONO % 7.2 % (2.0-8.0); NEUTROPHILS # 2.1 10^3/uL (1.5-8.5); NEUTROPHILS % 54.8 % (36.0-66.0); PLATELET COUNT, AUTOMATED 249 10^3/uL (150-450)
[2024-09-26 14:58] LABS: ALT/SGPT 13 U/L (7.0-40); AST/SGOT 18 U/L (<34); CALCIUM LEVEL 8.4 MG/DL (8.5-10.1); CARBON DIOXIDE LEVEL 24 MMOL/L (20-31); CHLORIDE LEVEL 107 MMOL/L (98-107); CREATININE FOR GFR 0.76 MG/DL (0.55-1.30); GLOMERULAR FILTRATION RATE > 90.0 (>51); IRON (FE) 125 UG/DL (50-170); POTASSIUM SERUM 4.0 MMOL/L (3.5-5.1); SODIUM LEVEL 142 MMOL/L (136-145)
[2024-09-26 15:11] LABS: PERCENT SATURATION 45.8 % (13.2-45.0)
== END ==
LOC: M LAB 13:52
PROVIDERS: ATTEND Internal Medicine Medical Oncology
DX: D50.9 Iron deficiency anemia, unspecified (principal)

== ENCOUNTER → 2024-11-21 | Outpatient (CLI) | payer OTHER ==
[2024-11-21 13:13] LABS: ESTIMATED AVERAGE GLUCOSE 108.0 MG/DL (60-110)
[2024-11-21 13:18] LABS: CHOLESTEROL LEVEL 195.0 MG/DL (<200); CHOLESTEROL RISK RATIO 3.33 (<5); LDL CHOLESTEROL 112.2 MG/DL (<100); NON-HDL-C 136.6 MG/DL; TRIGLYCERIDES LEVEL 122.0 MG/DL (<150)
[2024-11-21 13:19] LABS: VITAMIN B12 LEVEL 416.0 PG/ML (211-911)
== END ==
LOC: M RAD 11:34
DX: Z00.00 Encounter for general adult medical examination without abnormal findings (principal); M54.50 Low back pain, unspecified; M79.671 Pain in right foot; R20.2 Paresthesia of skin

== ENCOUNTER → 2024-12-04 | Outpatient (CLI) | payer OTHER | LOC: M WHC 08:54 | DX: Z12.31 Encounter for screening mammogram for malignant neoplasm of breast (principal) ==

== ENCOUNTER 2025-01-13 14:16 | Outpatient (CLI) | payer OTHER ==
[~2025-01-13] VITALS: Ht 152.4 cm; Wt 68.1 kg
[~2025-01-13 14:16] MED LIST changes: +ALBUTEROL SULFATE 2.5 MG/0.5 ML INH CONCENTRATE NEB SOLN INH PRN; +EPINEPHrine INJ 1 MG/ML 1ML AMP IM PRN; +diphenhydrAMINE 50 MG/ML VIAL IV PRN
[2025-01-13] MEDS: diphenhydrAMINE 25MG PO PRIOR TO INFUSION PO ONE (14:37)
[2025-01-13] MEDS: ACETAMINOPHEN 650MG PO PRIOR TO INFUSION PO ONE (14:37)
[2025-01-13] MEDS: IRON SUCROSE 200MG IVP IV ONE (14:37)
[2025-01-13] MEDS: dexAMETHasone 4 MG/ML 1 ML VIAL IV ONE (14:37)
[2025-01-13 14:40] VITALS: BP 121/55; O2SAT 99
[2025-01-13 15:08] VITALS: BP 96/51; O2SAT 98
== END 2025-01-13 15:08 | disposition home or self-care (01) ==
LOC: M INFU 14:16
PROVIDERS: ATTEND Internal Medicine Medical Oncology
DX: D50.0 Iron deficiency anemia secondary to blood loss (chronic) (principal); Z88.2 Allergy status to sulfonamides; Z91.048 Other nonmedicinal substance allergy status
CPT/HCPCS: 96374; J1756

== ENCOUNTER 2025-01-20 13:54 | Outpatient (CLI) | payer OTHER ==
[~2025-01-20] VITALS: Ht 154.9 cm; Wt 68.2 kg
[2025-01-20 14:13] VITALS: BP 126/59; O2SAT 100
[2025-01-20] MEDS: IRON SUCROSE 200MG IVP IV ONE (14:21)
[2025-01-20] MEDS ORDERED: ACETAMINOPHEN 325 MG TAB PO ONE (14:30)
[2025-01-20 15:00] VITALS: BP 114/75; O2SAT 99
== END 2025-01-20 15:00 | disposition home or self-care (01) ==
LOC: M INFU 13:54
PROVIDERS: ATTEND Internal Medicine Medical Oncology
DX: D50.0 Iron deficiency anemia secondary to blood loss (chronic) (principal); Z88.2 Allergy status to sulfonamides; Z91.048 Other nonmedicinal substance allergy status
CPT/HCPCS: 96374; J1756

== ENCOUNTER 2025-01-27 14:27 | Outpatient (CLI) | payer OTHER ==
[~2025-01-27] VITALS: Ht 154.9 cm; Wt 68.2 kg
[2025-01-27] MEDS ORDERED: dexameTHASONE 20 MG IV PRIOR TO INFUSION IV ONE (14:30)
[2025-01-27] MEDS ORDERED: ACETAMINOPHEN 650MG PO PRIOR TO INFUSION PO ONE (14:30)
[2025-01-27] MEDS ORDERED: diphenhydrAMINE 25MG PO PRIOR TO INFUSION PO ONE (14:30)
[2025-01-27] MEDS: IRON SUCROSE 200MG IVP IV ONE (14:45)
[2025-01-27 14:55] VITALS: BP 122/72; O2SAT 98
[2025-01-27 15:35] VITALS: BP 106/63; O2SAT 97
== END 2025-01-27 15:35 | disposition home or self-care (01) ==
LOC: M INFU 14:27
PROVIDERS: ATTEND Internal Medicine Medical Oncology
DX: D50.0 Iron deficiency anemia secondary to blood loss (chronic) (principal); Z88.2 Allergy status to sulfonamides; Z91.048 Other nonmedicinal substance allergy status
CPT/HCPCS: 96374; J1756

== ENCOUNTER 2025-02-03 13:28 | Outpatient (CLI) | payer OTHER ==
[~2025-02-03] VITALS: Ht 154.9 cm; Wt 68.0 kg
[2025-02-03] MEDS ORDERED: dexameTHASONE 20 MG IV PRIOR TO INFUSION IV ONE (13:30)
[2025-02-03] MEDS ORDERED: ACETAMINOPHEN 650MG PO PRIOR TO INFUSION PO ONE (13:30)
[2025-02-03] MEDS ORDERED: diphenhydrAMINE 25MG PO PRIOR TO INFUSION PO ONE (13:30)
[2025-02-03 13:38] VITALS: BP 104/51; O2SAT 100
[2025-02-03] MEDS: IRON SUCROSE 200MG IVP IV ONE (13:59)
[2025-02-03 14:40] VITALS: BP 110/49; O2SAT 99
== END 2025-02-03 14:40 | disposition home or self-care (01) ==
LOC: M INFU 13:28
PROVIDERS: ATTEND Internal Medicine Medical Oncology
DX: D50.0 Iron deficiency anemia secondary to blood loss (chronic) (principal); Z88.2 Allergy status to sulfonamides; Z91.048 Other nonmedicinal substance allergy status
CPT/HCPCS: 96374; J1756